=== PATIENT | female | born 1980 | race Hispanic/Latino ===

== ENCOUNTER 2020-06-02 18:19 | Inpatient (IN) | payer BC ==
[~2020-06-02] VITALS: Ht 175.3 cm; Wt 104.3 kg
[2020-06-02 19:09] LABS: BASOPHILS % (AUTO) 0.5 % (0.0-5.0); EOSINOPHILS % (AUTO) 1.4 % (0.0-8.0); HEMATOCRIT 35.4 % (36-48); LYMPHOCYTES % (AUTO) 28.3 % (21.0-51.0); MEAN CORPUSCULAR HGB CONC 31.9 g/dL (32.0-36.0); MEAN CORPUSCULAR VOLUME 93.9 fL (79-99); MONOCYTES % (AUTO) 7.8 % (3.0-13.0); NEUTROPHILS % (AUTO) 61.5 % (40.0-77.0); PLATELET COUNT (AUTO) 303 K/uL (130-400); RED BLOOD CELL COUNT(AUTO) 3.77 MIL/uL (4.00-5.50); WHITE BLOOD COUNT (AUTO) 6.5 K/uL (4.8-10.8)
[2020-06-02 19:14] LABS: CREATININE 0.8 mg/dL (0.5-1.5); POTASSIUM 3.9 mmol/L (3.5-5.1)
[2020-06-02 19:19] LABS: ALBUMIN 2.8 g/dL (3.5-5.0); BILIRUBIN,TOTAL 0.2 mg/dL (0.2-1.0); TOTAL PROTEIN, SERUM 6.4 g/dL (6.0-8.3)
[2020-06-02] MEDS ORDERED: ONDANSETRON HCL 4 MG/2 ML VIAL ONE (19:24)
[2020-06-02] MEDS ORDERED: METOCLOPRAMIDE 10 MG/2 ML VIAL ONE (21:18)
[2020-06-02] MEDS ORDERED: KETOROLAC TROMETHAMINE 30MG/ML ONE (21:19)
[2020-06-02] MEDS ORDERED: DiphenhydrAMINE HCL 50 MG/ML VIAL ONE (21:19)
[2020-06-02] MEDS ORDERED: ONDANSETRON HCL 4 MG/2 ML VIAL IVP PRN (22:00)
[2020-06-03] MEDS ORDERED: 1/2 NORMAL SALINE 1,000 ML IV ONE (00:13)
[2020-06-03 05:50] LABS: BASOPHILS % (AUTO) 0.4 % (0.0-5.0); EOSINOPHILS % (AUTO) 1.8 % (0.0-8.0); HEMATOCRIT 31.3 % (36-48); LYMPHOCYTES % (AUTO) 28.5 % (21.0-51.0); MEAN CORPUSCULAR HEMOGLOBIN 29.9 pg (27.0-33.0); MEAN CORPUSCULAR HGB CONC 31.9 g/dL (32.0-36.0); MEAN CORPUSCULAR VOLUME 93.4 fL (79-99); MONOCYTES % (AUTO) 8.5 % (3.0-13.0); NEUTROPHILS % (AUTO) 60.4 % (40.0-77.0); PLATELET COUNT (AUTO) 239 K/uL (130-400); RED BLOOD CELL COUNT(AUTO) 3.35 MIL/uL (4.00-5.50); RED CELL DISTRIBUTION WIDTH 15.9 % (11.0-15.5); WHITE BLOOD COUNT (AUTO) 5.4 K/uL (4.8-10.8)
[2020-06-03 06:01] LABS: ALBUMIN 2.4 g/dL (3.5-5.0); BILIRUBIN,TOTAL 0.3 mg/dL (0.2-1.0); CREATININE 0.7 mg/dL (0.5-1.5); POTASSIUM 3.6 mmol/L (3.5-5.1); TOTAL PROTEIN, SERUM 5.3 g/dL (6.0-8.3)
[2020-06-03 06:46] LABS: APPEARANCE,URINE CLEAR (CLEAR); BILIRUBIN,URINE Negative (NEGATIVE); COLOR,URINE Yellow (YELLOW); GLUCOSE, URINE (UA) Negative (NEGATIVE); KETONES,URINE Negative (NEGATIVE); LEUKOCYTE ESTERASE ,URINE Trace (NEGATIVE); NITRATE,URINE Negative (NEGATIVE); OCCULT BLOOD,URINE Negative (NEGATIVE); PH,URINE 6.5 (5.0-8.0); PROTEIN,URINE Negative (NEGATIVE); UROBILINOGEN,URINE 0.2 mg/dL (0.2-1.0)
[2020-06-03 06:51] LABS: HCG,QUAL RESULT NEGATIVE (NEGATIVE)
[2020-06-03 07:26] LABS: BACTERIA,URINE Few /HPF (None Seen)
[2020-06-03] MEDS ORDERED: THIAMINE HCL 100 MG/ML 2ML VIAL ONE (08:19)
[2020-06-03] MEDS ORDERED: MULTIVITAMIN TABLET ONE (08:20)
[2020-06-03] MEDS ORDERED: CYANOCOBALAMIN (VITAMIN B-12) 1,000 MCG TABLET ONE (08:20)
[2020-06-03] MEDS ORDERED: FOLIC ACID 1 MG TABLET ONE (08:20)
[2020-06-03] MEDS ORDERED: THIAMINE HCL 100 MG/ML 2ML VIAL IV SCH (09:00)
[2020-06-03] MEDS ORDERED: MULTIVITAMIN TABLET PO SCH (09:00)
[2020-06-03] MEDS ORDERED: THIAMINE HCL 400 MG in SODIUM CHLORIDE 0.9% 50 ML IV SCH (09:30)
[2020-06-03] MEDS ORDERED: GABAPENTIN 100 MG CAPSULE ONE (14:54)
--- NOTE | 2020-06-03 15:54 | NUR ---
SHANTE NOTE/IA UNABLE TO MET WITH PATIENT IN ROOM, NEXT OF KIN CALLED, MARLYN HANLEY. PER MOTHER, PATIENT LIVES WITH PARENTS AND ADULT SISTER, INDEPENDENT WITH ADLS, NO USE OF DME OR PROVIDER SERVICES AND FEELS SAFE FOR PATIENT TO RETURN HOME ONCE DISCHARGED. Addendum: 06/03/20 at 1555 by BINDU MARAVILLA RN CM Amended: Links added.
[2020-06-03 16:50] VITALS: BP 154/92
[2020-06-03] MEDS: 1/2 NORMAL SALINE 1,000 ML IV SCH (18:11)
[2020-06-03] MEDS: GABAPENTIN 100 MG CAPSULE PO SCH ×2 (18:13→21:12)
[2020-06-03] MEDS: THIAMINE HCL 500 MG in SODIUM CHLORIDE 0.9% 50 ML IV SCH ×2 (18:13→22:53)
--- NOTE | 2020-06-03 18:14 | NUR ---
PER ER NURSE CORINA, MULTIVITAMIN, B12, FOLIC ACID, AND NEURONTIN GIVEN, THIAMINE 500 MG IV TID X48 HRS
--- NOTE | 2020-06-03 18:15 | NUR ---
RE:DR HOUSTON IF PT DOES WELL THIS WEEKEND, MAY F/U IN HIS OFFICE UPON DC.
[2020-06-03 19:00] VITALS: BP 120/78
[2020-06-03] MEDS: FOLIC ACID 1 MG TABLET PO SCH (21:12)
[2020-06-04] VITALS (18 sets, daily range): BP systolic 97–153; BP diastolic 49–105
[2020-06-04] MEDS: 1/2 NORMAL SALINE 1,000 ML IV SCH ×3 (05:16→22:08)
[2020-06-04] MEDS: THIAMINE HCL 500 MG in SODIUM CHLORIDE 0.9% 50 ML IV SCH ×3 (05:18→22:14)
[2020-06-04] MEDS ORDERED: LIDOCAINE HCL 1% 20 ML VIAL ONE (07:48)
[2020-06-04] MEDS ORDERED: PROPOFOL 10 MG/ML 20ML VIAL IV ONE ×2 (07:48→07:54)
[2020-06-04] MEDS: GABAPENTIN 100 MG CAPSULE PO SCH ×2 (09:56→22:10)
[2020-06-04] MEDS: PANTOPRAZOLE 40 MG/VIAL IVP SCH (09:56)
[2020-06-04] MEDS: MULTIVITAMIN TABLET PO SCH (09:56)
[2020-06-04] MEDS: FOLIC ACID 1 MG TABLET PO SCH ×2 (09:57→22:10)
[2020-06-04] MEDS: SUCRALFATE 1 GM TABLET PO SCH ×3 (09:57→22:10)
[2020-06-04] MEDS ORDERED: COMPOUND IV MISC 1 EACH IVSOLN MISC PRN (12:30)
[2020-06-05 04:06] VITALS: BP 139/90
[2020-06-05] MEDS: SUCRALFATE 1 GM TABLET PO SCH ×4 (06:13→20:59)
[2020-06-05] MEDS: THIAMINE HCL 250 MG in SODIUM CHLORIDE 0.9% 50 ML IV SCH ×3 (06:51→21:04)
[2020-06-05 08:56] VITALS: BP 145/88
[2020-06-05] MEDS: PANTOPRAZOLE 40 MG/VIAL IVP SCH (09:18)
[2020-06-05] MEDS: GABAPENTIN 100 MG CAPSULE PO SCH ×2 (09:18→20:01)
[2020-06-05] MEDS: MULTIVITAMIN TABLET PO SCH (09:18)
[2020-06-05] MEDS: FOLIC ACID 1 MG TABLET PO SCH ×2 (09:18→20:01)
[2020-06-05] MEDS: 1/2 NORMAL SALINE 1,000 ML IV SCH ×2 (09:24→20:01)
[2020-06-05 12:34] VITALS: BP 148/90
[2020-06-05 19:32] VITALS: BP 118/92
[2020-06-05 20:00] VITALS: BP 122/89
[2020-06-06] VITALS: BP 134/84
[2020-06-06] MEDS: SUCRALFATE 1 GM TABLET PO SCH ×2 (02:58→08:34)
[2020-06-06 04:00] VITALS: BP 134/84
[2020-06-06] MEDS: THIAMINE HCL 250 MG in SODIUM CHLORIDE 0.9% 50 ML IV SCH (05:44)
[2020-06-06] MEDS: 1/2 NORMAL SALINE 1,000 ML IV SCH (05:44)
--- NOTE | 2020-06-06 07:30 | NUR ---
ASSESSMENT NOTE: PT IS AA 0X 4 IN BED NO COMPLAINS OF PAIN, N & V. PT IS AWAITING D/C ORDERS.
[2020-06-06 08:34] VITALS: BP 131/81
[2020-06-06] MEDS: GABAPENTIN 100 MG CAPSULE PO SCH (08:34)
[2020-06-06] MEDS: MULTIVITAMIN TABLET PO SCH (08:34)
[2020-06-06] MEDS: PANTOPRAZOLE 40 MG/VIAL IVP SCH (08:35)
[2020-06-06] MEDS: FOLIC ACID 1 MG TABLET PO SCH (08:35)
[2020-06-06] MEDS ORDERED: THIAMINE HCL 100 MG TABLET PO SCH (09:00)
[2020-06-06 12:01] VITALS: BP 124/79
--- NOTE | 2020-06-06 14:08 | NUR ---
D/C PT AA0X X4 VS STABLE NO COMPLAINTS OF NAUSEA AND VOMITING. PT LEFT VIA WHEEL CHAIR IN PVT CAR WITH D/C INSTRUCTIONS TO F/U WITH PRIMARY 2-3 DAYS, DR. HAMILTON 06-14, DR. ORTEGA 06/15. PT WAS GIVEN RX SCRIPTS FOR MEDS. NO COMPLICATIONS UPON D/C
== END 2020-06-06 14:00 | disposition home or self-care (01) | DRG 641 ==
LOC: EDH 18:19 → EDHIP 18:20 → OBSVTOIN 18:20 → EDHIP 06-03 07:35 → 3CH 06-03 16:24
PROVIDERS: ADMIT Internal Medicine; ATTEND Internal Medicine
PROC: 0DB68ZX Excision of Stomach, Via Natural or Artificial Opening Endoscopic, Diagnostic (ICD-10-PCS; principal; 2020-06-04)
PROC: 4A10X4Z Monitoring of Central Nervous Electrical Activity, External Approach (ICD-10-PCS; 2020-06-06)
DX: E51.2 Wernicke's encephalopathy (principal); E44.1 Mild protein-calorie malnutrition; N39.0 Urinary tract infection, site not specified; E86.0 Dehydration; E56.9 Vitamin deficiency, unspecified; K29.70 Gastritis, unspecified, without bleeding; K25.9 Gastric ulcer, unspecified as acute or chronic, without hemorrhage or perforation; E66.01 Morbid (severe) obesity due to excess calories; H53.8 Other visual disturbances; G62.9 Polyneuropathy, unspecified; Z20.828 Contact with and (suspected) exposure to other viral communicable diseases; I50.9 Heart failure, unspecified; Z98.84 Bariatric surgery status; Z68.34 Body mass index [BMI] 34.0-34.9, adult
CPT/HCPCS: 36415; 43239; 70551; 80053; 81001; 81025; 82150; 82525; 82607; 83690; 83880; 84207; 85025; 87426; 93306; 93356; 95816; C9113; G0378; J1200; J1885; J2405; J2704; J2765; J3411

== ENCOUNTER 2020-06-24 07:06 | Emergency (ER) | payer BC ==
[2020-06-24 07:25] LABS: BASOPHILS % (AUTO) 0.5 % (0.0-5.0); EOSINOPHILS % (AUTO) 0.9 % (0.0-8.0); HEMATOCRIT 38.9 % (36-48); LYMPHOCYTES % (AUTO) 30.6 % (21.0-51.0); MEAN CORPUSCULAR HEMOGLOBIN 30.4 pg (27.0-33.0); MEAN CORPUSCULAR HGB CONC 31.6 g/dL (32.0-36.0); MONOCYTES % (AUTO) 9.5 % (3.0-13.0); NEUTROPHILS % (AUTO) 58.1 % (40.0-77.0); PLATELET COUNT (AUTO) 317 K/uL (130-400); RED BLOOD CELL COUNT(AUTO) 4.05 MIL/uL (4.00-5.50); RED CELL DISTRIBUTION WIDTH 14.3 % (11.0-15.5); WHITE BLOOD COUNT (AUTO) 5.6 K/uL (4.8-10.8)
[2020-06-24 07:42] LABS: ALBUMIN 2.9 g/dL (3.5-5.0); BILIRUBIN,TOTAL 0.5 mg/dL (0.2-1.0); CREATININE 0.7 mg/dL (0.5-1.5); POTASSIUM 3.8 mmol/L (3.5-5.1); TOTAL PROTEIN, SERUM 6.7 g/dL (6.0-8.3)
[2020-06-24 07:49] LABS: INR 1.03 (0.85-1.15); PARTIAL THROMBOPLASTIN TIME 26.4 SEC (26.3-35.5); PROTHROMBIN TIME 11.1 SEC (9.6-11.6)
[2020-06-24] MEDS ORDERED: THIAMINE HCL 100 MG/ML 2ML VIAL ONE (08:28)
[2020-06-24] MEDS ORDERED: SODIUM CHLORIDE 0.9% 50 ML IV ONE (08:29)
[2020-06-24] MEDS ORDERED: CYANOCOBALAMIN (VITAMIN B-12) 1000 MCG/ML 1ML VIAL IM SCH (08:45)
== END 2020-06-24 09:54 | disposition home or self-care (01) ==
LOC: EDH 07:06
DX: M94.0 Chondrocostal junction syndrome [Tietze] (principal); R20.2 Paresthesia of skin; F41.9 Anxiety disorder, unspecified; Z98.84 Bariatric surgery status; Z88.5 Allergy status to narcotic agent; Z88.8 Allergy status to other drugs, medicaments and biological substances
CPT/HCPCS: 36415; 71045; 80053; 82550; 84484; 84702; 85025; 85610; 85730; 93005; 96365; 96372; 99285; J3411; J3420